=== PATIENT | male | born 1970 | race Two or more races ===

== ENCOUNTER 2024-11-26 14:41 | Emergency (ER) | payer OTHER ==
[~2024-11-26] VITALS: Ht 177.8 cm; Wt 122.5 kg
[2024-11-26] MEDS ORDERED: BISOPROLOL-HCT1 EACH PO (15:25)
[2024-11-26] MEDS ORDERED: FAMOTIDINE/PF 20 MG in 0.9 % SODIUM CHLORIDE 8 ML IV PUSH STA (16:40)
[2024-11-26] MEDS ORDERED: TRAMADOL HCL 50 MG TABLET PO SCH (16:45)
[2024-11-26] MEDS ORDERED: FAMOTIDINE/PF 20 MG/2 ML VIAL ONE (17:26)
[2024-11-26 17:39] LABS: HEMATOCRIT 45.6 % (39.0-48.0); HEMOGLOBIN 15.5 g/dL (13-16.00); MEAN CELL VOLUME 89.5 fL (80.0-100.00); MEAN CORPUSCULAR HEMOGLOBIN 30.3 pg (27.00-32.0); MEAN CORPUSCULAR HGB CONC 33.9 g/dl (32.0-36.0); PLATELET COUNT 257 K/uL (150-450)
[2024-11-26 17:39] LABS: PH,URINE 5.5 (5.0-8.0); URINE APPEARANCE Clear; URINE BILIRRUBIN Negative (NEGATIVE); URINE BLOOD Negative; URINE COLOR Dark Yellow; URINE GLUCOSE Negative (NEGATIVE); URINE KETONE Trace (NEGATIVE); URINE LEUKOCYTE Negative; URINE NITRATE Negative; URINE PROTEIN Negative (NEGATIVE); URINE UROBILINOGEN 0.2 E.U./dl
[2024-11-26 17:43] LABS: URINE BACTERIA 151.7 uL (0.0-1933); URINE CAST 5.15 uL (0.0-1.40); URINE EPITHELIAL CELLS 9.3 uL (0.0-38.8); URINE RBC 8.1 uL (0.0-20.8); URINE WBC 12.1 uL (0.0-23.2)
[2024-11-26 18:12] LABS: ALBUMIN 3.4 gm/dL (3.4-5.0); BILIRUBIN TOTAL 0.49 mg/dL (0.3-1.2); CALCIUM 9.5 mg/dL (8.5-10.1); CREATININE SERUM 0.92 mg/dL (0.70-1.30); GFR 85.41; GLOBULINA 4.4 G/DL (2.4-3.5); POTASSIUM 3.61 mEq/L (3.5-5.1); TOTAL PROTEIN 7.8 gm/dL (6.4-8.2)
[2024-11-26] MEDS ORDERED: DOLOGEN CAPLET1 EACH PO (20:07)
== END 2024-11-26 20:18 | disposition home or self-care (01) ==
LOC: ER 14:43
PROVIDERS: General Practice
DX: R10.31 Right lower quadrant pain (principal); N20.0 Calculus of kidney; K76.0 Fatty (change of) liver, not elsewhere classified; I10 Essential (primary) hypertension; Z88.6 Allergy status to analgesic agent; Z88.0 Allergy status to penicillin